=== PATIENT | male | born 1960 | race Caucasian/White ===

== ENCOUNTER 2018-07-29 18:23 | Emergency (ER) | payer MEDICARE, BC ==
--- NOTE | 2018-07-29 18:42 | EDM.PDOC ---
ED HPI GENERAL MEDICAL PROBLEM - General Chief Complaint: Neuro Symptoms/Deficits Stated Complaint: HIGH BLOOD PRESSURE, SLURRED SPEECH Time Seen by Provider: 07/29/18 18:39 Source of Information: Reports: Patient History Limitations: Reports: No Limitations - History of Present Illness INITIAL COMMENTS - FREE TEXT/NARRATIVE: pt arrived with a history of 2 episodes that lasted a few minutes when he could not speak. He then seemed back to normal and it happened again. He does not have a headache but his bp is very high. Onset: Today, Sudden Duration: Hour(s): Location: Reports: Head Associated Symptoms: Reports: Other ( difficulty speaking. ) neck Pain Score (Numeric/FACES): 5 - Related Data Allergies Allergy/AdvReac Type Severity Reaction Status Date / Time No Known Allergies Allergy Verified 07/29/18 18:28 Home Meds: Home Meds Lisinopril 5 mg PO DAILY 07/29/18 [History] Naproxen 500 mg PO TID 07/29/18 [History] Simvastatin [Zocor] 40 mg PO BEDTIME 07/29/18 [History] metFORMIN [Glucophage] 1,500 mg PO BIDMEALS 07/29/18 [History] tiZANidine [Zanaflex] 4 mg PO BID 07/29/18 [History] traMADol HCl [Tramadol HCl] 50 mg PO ASDIRECTED 07/29/18 [History] Past Medical History HEENT History: Reports: Impaired Vision Cardiovascular History: Reports: Hypertension Musculoskeletal History: Reports: Arthritis, Fracture Psychiatric History: Reports: Anxiety, Depression Endocrine/Metabolic History: Reports: Other (See Below) Other Endocrine/Metabolic History: borderline diabetic takes metformin Dermatologic History: Reports: Eczema - Past Surgical History Musculoskeletal Surgical History: Reports: Other (See Below) ED ROS GENERAL - Review of Systems Review Of Systems: See Below Constitutional: Reports: No Symptoms HEENT: Reports: No Symptoms Respiratory: Reports: No Symptoms Cardiovascular: Reports: No Symptoms Endocrine: Reports: No Symptoms GI/Abdominal: Reports: No Symptoms : Reports: No Symptoms Musculoskeletal: Reports: No Symptoms Skin: Reports: No Symptoms Neurological: Reports: Trouble Speaking, Other ( 2 episodes of difficulty speaking. ) Psychiatric: Reports: Anxiety ED EXAM, NEURO - Physical Exam Exam: See Below Text/Narrative:: Pt arrived with difficulty with speech. He had 2 episodes prior to arrival and he has had 2 episodes after arrival. He does not have any other symptoms. He does not have a headache. His bp is very high. Exam Limited By: No Limitations General Appearance: Alert, No Apparent Distress, Anxious, Other (pt is worried about the speech issue. pupils are equal anfd reactive. ) Ears: Normal TMs Nose: Normal Inspection Throat/Mouth: Normal Inspection Head Exam: Atraumatic Neck: Normal Inspection Respiratory/Chest: No Respiratory Distress Cardiovascular: Regular Rate, Rhythm, No Murmur GI/Abdominal: Soft, Non-Tender (Male) Exam: Deferred Rectal (Males) Exam: Deferred Neurological: Alert, Oriented x 3, Other (pt is only having episodes when he can not speak. He has no facial deviation) Back Exam: Normal Inspection Extremities: Other (normal range of motion and normal strength. ) Psychiatric: Normal Affect, Anxious Course - Vital Signs Last Recorded V/S: Last Vital Signs Temp 35.5 C 07/29/18 19:06 Pulse 77 07/29/18 19:12 Resp 16 07/29/18 19:06 BP 150/84 H 07/29/18 19:12 Pulse Ox 97 07/29/18 19:12 - Orders/Labs/Meds Orders: Active Orders 24 hr Category Date Time Status EKG Documentation Completion [RC] ASDIRECTED Care 07/29/18 18:28 Active Head wo Cont [CT] Stat Exams 07/29/18 18:27 Taken Sodium Chloride 0.9% [Normal Saline] 1,000 ml Med 07/29/18 19:30 Ordered IV ASDIRECTED EKG 12 Lead [EK] Routine Ther 07/29/18 18:28 Ordered Medication Orders Sodium Chloride (Normal Saline) 1,000 mls @ 150 mls/hr IV ASDIRECTED RAINER Labs: Laboratory Tests 07/29/18 07/29/18 07/29/18 Range/Units 18:46 18:56 18:56 WBC 7.8 (4.5-11.0) K/uL RBC 4.61 (4.30-5.90) M/uL Hgb 15.0 (12.0-15.0) g/dL Hct 41.7 (40.0-54.0) % MCV 91 (80-98) fL MCH 33 H (27-31) pg MCHC 36 (32-36) % Plt Count 213 (150-400) K/uL Neut % (Auto) 67 H (36-66) % Lymph % (Auto) 15 L (24-44) % Churchill % (Auto) 16 H (2-6) % Eos % (Auto) 1 L (2-4) % Baso % (Auto) 1 (0-1) % PT 10.2 (9.5-12.0) sec INR 0.92 (0.80-1.20) APTT 27.5 (27.0-36.0) sec Sodium 134 L (140-148) mmol/L Potassium 4.3 (3.6-5.2) mmol/L Chloride 97 L (100-108) mmol/L Carbon Dioxide 25 (21-32) mmol/L Anion Gap 16.3 H (5.0-14.0) mmol/L BUN 9 (7-18) mg/dL Creatinine 0.8 (0.8-1.3) mg/dL Est Cr Clr Drug Dosing 106.46 mL/min Estimated GFR (MDRD) > 60 (>60) Glucose 92 (74-106) mg/dL Calcium 9.6 (8.5-10.1) mg/dL Total Bilirubin 0.5 (0.2-1.0) mg/dL AST 34 (15-37) U/L ALT 35 (12-78) U/L Alkaline Phosphatase 50 (46-116) U/L Total Protein 6.9 (6.4-8.2) g/dL Albumin 4.2 (3.4-5.0) g/dL Globulin 2.7 (2.3-3.5) g/dL Albumin/Globulin Ratio 1.6 (1.2-2.2) Meds: Medications Generic Name Dose Route Start Last Admin Trade Name Freq PRN Reason Stop Dose Admin Sodium Chloride 1,000 mls @ 150 mls/hr 07/29/18 19:30 Normal Saline IV ASDIRECTED RAINER Discontinued Medications Generic Name Dose Route Start Last Admin Trade Name Freq PRN Reason Stop Dose Admin Aspirin 325 mg 07/29/18 19:25 Ecotrin PO 07/29/18 19:26 ONETIME ONE Labetalol HCl 20 mg 07/29/18 18:49 Normodyne IVPUSH 07/29/18 18:50 ONETIME ONE Protocol Labetalol HCl 20 mg 07/29/18 19:04 09/18/18 19:04 Normodyne IVPUSH 07/29/18 19:05 20 mg NOW ONE Administration Protocol Labetalol HCl Confirm 07/29/18 19:01 Normodyne Administered 07/29/18 19:02 Dose 20 mg .ROUTE .STK-MED ONE - Re-Assessments/Exams Free Text/Narrative Re-Assessment/Exam: 07/29/18 19:02 pt had very high bp is was given labetalol 20mg iv. He had a cat scan of the head which was normal. His glucose is 90. He does not have any pain. He is under alot of stress. His has dementia and it appears to be getting worse. He is the point of care technician. 07/29/18 19:26 Dr Arrington was consulted and he felt that he should have the full stroke workup. Departure - Departure Time of Disposition: 19:27 Disposition: DC/Tfer to Acute Hospital 02 Condition: Fair Clinical Impression: TIA (transient ischemic attack), Hypertension - Discharge Information Referrals: PCP,None [Primary Care Provider] - Forms: ED Department Discharge Care Plan Goals: To [facility] for a stroke workup - My Orders Last 24 Hours: My Active Orders 07/29/18 18:27 Head wo Cont [CT] Stat 07/29/18 18:28 EKG Documentation Completion [RC] ASDIRECTED EKG 12 Lead [EK] Routine 07/29/18 19:30 Sodium Chloride 0.9% [Normal Saline] 1,000 ml IV ASDIRECTED - Assessment/Plan Last 24 Hours: My Active Orders 07/29/18 18:27 Head wo Cont [CT] Stat 07/29/18 18:28 EKG Documentation Completion [RC] ASDIRECTED EKG 12 Lead [EK] Routine 07/29/18 19:30 Sodium Chloride 0.9% [Normal Saline] 1,000 ml IV ASDIRECTED
[2018-07-29] MEDS ORDERED: Labetalol 100 MG/20 ML MDV IVPUSH ONE (18:49)
[2018-07-29] MEDS ORDERED: Labetalol 20 MG/4 ML Syringe ONE (19:01)
[2018-07-29] MEDS ORDERED: Labetalol 20 MG/4 ML Syringe IVPUSH ONE (19:04)
[2018-07-29 19:13] VITALS: BP 150/84
[2018-07-29] MEDS ORDERED: Aspirin 325 MG Tab.EC PO ONE (19:25)
[2018-07-29] MEDS ORDERED: Sodium Chloride 0.9% 1,000 ML IV SCH (19:30)
== END 2018-07-29 19:47 ==
LOC: JP.ED 18:23
DX: G45.9 Transient cerebral ischemic attack, unspecified (principal); I10 Essential (primary) hypertension; F41.9 Anxiety disorder, unspecified; F32.9 Major depressive disorder, single episode, unspecified; F17.210 Nicotine dependence, cigarettes, uncomplicated; Z79.899 Other long term (current) drug therapy; Z79.84 Long term (current) use of oral hypoglycemic drugs
CPT/HCPCS: 36415; 70450; 80053; 82962; 85025; 85610; 85730; 93005; 93010; 96374; 99284; A9270; J3490; J7030

== ENCOUNTER 2019-04-09 20:37 | Emergency (ER) | payer MEDICARE, BC ==
[2019-04-09 21:15] VITALS: BP 158/88
--- NOTE | 2019-04-09 22:08 | CRLCR ---
INDICATION: Forearm injury from fall on dorsum side of hand TECHNIQUE: Forearm radiograph 2 views right COMPARISON: None FINDINGS: Bone: There is a comminuted, segmental nondisplaced fracture present in the ulnar diaphysis. Joint: The visualized radiocarpal and elbow joints are unremarkable, but the elbow joint is not profiled. If there is pain or tenderness in this region, dedicated views of the elbow are recommended. Soft tissue: Unremarkable. No radiopaque foreign bodies are seen. IMPRESSION: 1. There is a comminuted, segmental nondisplaced fracture present in the ulnar diaphysis. Dictated by Brad Hernandez MD @ 04/09/2019 10:07:02 PM Dictated by: Brad Hernandez MD @ 04/09/2019 22:07:09 (Electronically Signed)
--- NOTE | 2019-04-09 22:28 | EDM.PDOC ---
ED HPI GENERAL MEDICAL PROBLEM - General Chief Complaint: Upper Extremity Injury/Pain Stated Complaint: RIGHT WRIST INJURY/DEER TICK Time Seen by Provider: 04/09/19 21:30 Source of Information: Reports: Patient History Limitations: Reports: No Limitations - History of Present Illness INITIAL COMMENTS - FREE TEXT/NARRATIVE: This patient was at home and he tripped and fell on his right hand the hand the wrist was fully flex so he sort of fell on the back of his hand and sort of hyper flexed the wrist. He complains of pain to about the distal third of the ulna. He also was bitten by a tick to the low back about a week ago and he's worried about Lyme disease. He's not having any rash or fever or body aches. Right Hand Pain Score (Numeric/FACES): 10 - Related Data Allergies Allergy/AdvReac Type Severity Reaction Status Date / Time No Known Allergies Allergy Verified 07/29/18 18:28 Home Meds: Home Meds Lisinopril 5 mg PO DAILY 07/29/18 [History] Naproxen 500 mg PO TID 07/29/18 [History] Simvastatin [Zocor] 40 mg PO BEDTIME 07/29/18 [History] metFORMIN [Glucophage] 1,500 mg PO BIDMEALS 07/29/18 [History] tiZANidine [Zanaflex] 4 mg PO BID 07/29/18 [History] traMADol HCl [Tramadol HCl] 50 mg PO ASDIRECTED 07/29/18 [History] Past Medical History HEENT History: Reports: Impaired Vision Cardiovascular History: Reports: Hypertension Musculoskeletal History: Reports: Arthritis, Fracture Psychiatric History: Reports: Anxiety, Depression Endocrine/Metabolic History: Reports: Other (See Below) Other Endocrine/Metabolic History: borderline diabetic takes metformin Dermatologic History: Reports: Eczema - Infectious Disease History Infectious Disease History: Reports: Chicken Pox - Past Surgical History Musculoskeletal Surgical History: Reports: Other (See Below) Social & Family History - Tobacco Use Smoking Status *Q: Current Every Day Smoker Years of Tobacco use: 20 Packs/Tins Daily: 0.5 - Caffeine Use Caffeine Use: Reports: Soda Review of Systems - Review of Systems Review Of Systems: ROS reveals no pertinent complaints other than HPI. ED EXAM, GENERAL - Physical Exam Exam: See Below Exam Limited By: No Limitations General Appearance: Alert, WD/WN, No Apparent Distress Back Exam: Other (There does appear to be evidence of a tick bite to the low back there is a central bite vuong Like a little grayish appearing crater surrounded by about a centimeter of very mild erythema. Definitely does not appear to have any erythema migrans type of rash) Extremities: Other (. there is mild swelling and tenderness to the distal ) Course - Vital Signs Last Recorded V/S: Last Vital Signs Temp 37.3 C 04/09/19 20:59 Pulse 110 H 04/09/19 20:59 Resp 18 04/09/19 20:59 BP 158/88 H 04/09/19 20:59 Pulse Ox 94 L 04/09/19 20:59 - Radiology Interpretation Free Text/Narrative:: Comminuted minimally displaced fracture of the distal third of the right ulna. - Re-Assessments/Exams Free Text/Narrative Re-Assessment/Exam: 04/09/19 22:25 Sugar tong splint was placed to the right forearm. And he was placed in a sling. Departure - Departure Time of Disposition: 22:25 Disposition: Home, Self-Care 01 Condition: Fair Clinical Impression: Fracture of ulna, Tick bite of back - Discharge Information Instructions: Ulnar Fracture Referrals: PCP,None [Primary Care Provider] - Forms: ED Department Discharge Additional Instructions: Wear the splint for safety. Apply ice for the next 12 hours or so. Keep elevated as much as she can. Follow-up with orthopedics next week. For the tick bite take doxycycline 100 mg twice daily for 1 week. There is enough medication there for 10 days if you want to take it for that long. 10 days would be the minimum treatment for acute Lyme disease however you don't appear to have symptoms of acute Lyme disease so you are just receiving the medication as prophylaxis.
== END 2019-04-09 22:35 | disposition home or self-care (01) ==
LOC: JP.ED 20:37
DX: S52.601A Unspecified fracture of lower end of right ulna, initial encounter for closed fracture (principal); S30.860A Insect bite (nonvenomous) of lower back and pelvis, initial encounter; F41.9 Anxiety disorder, unspecified; F32.9 Major depressive disorder, single episode, unspecified; F17.210 Nicotine dependence, cigarettes, uncomplicated; Z79.899 Other long term (current) drug therapy; W57.XXXA Bitten or stung by nonvenomous insect and other nonvenomous arthropods, initial encounter; W19.XXXA Unspecified fall, initial encounter
CPT/HCPCS: 29125; 73090-RT; 99283; 99283-25

== ENCOUNTER 2019-04-12 20:16 | Emergency (ER) | payer MEDICARE, BC ==
--- NOTE | 2019-04-12 21:17 | EDM.PDOCBH ---
ED HPI GENERAL MEDICAL PROBLEM - General Chief Complaint: Behavioral/Psych Stated Complaint: EVAL VIA [facility] Time Seen by Provider: 04/12/19 21:00 Source of Information: Reports: Patient, Old Records History Limitations: Reports: No Limitations - History of Present Illness INITIAL COMMENTS - FREE TEXT/NARRATIVE: 58 yo male presents via EMS with intoxication stating he needs help for depression and drinking. Is willing to go to detox. His last Aug. and he lives alone. Is [facility]. Onset: Gradual Duration: Chronic, Waxing/Waning Location: Reports: Generalized Quality: Reports: Other (no new physical pain) Severity: Moderate Improves with: Reports: None Worsens with: Reports: Other (time) Context: Reports: Other (see HPI) Associated Symptoms: Reports: Other (depression/intoxication) Treatments [employer]ODUCTION [employer]IST: Reports: Other (see below) (none) - Related Data Allergies Allergy/AdvReac Type Severity Reaction Status Date / Time No Known Allergies Allergy Verified 04/12/19 21:54 Home Meds: Home Meds Lisinopril 5 mg PO DAILY 07/29/18 [History] Naproxen 500 mg PO TID 07/29/18 [History] Simvastatin [Zocor] 40 mg PO BEDTIME 07/29/18 [History] metFORMIN [Glucophage] 1,500 mg PO BIDMEALS 07/29/18 [History] tiZANidine [Zanaflex] 4 mg PO BID 07/29/18 [History] traMADol HCl [Tramadol HCl] 50 mg PO ASDIRECTED 07/29/18 [History] LORazepam 1 mg PO Q6H PRN 04/12/19 [History] Past Medical History HEENT History: Reports: Impaired Vision Cardiovascular History: Reports: Heart Murmur, Hypertension Musculoskeletal History: Reports: Arthritis, Fracture Neurological History: Reports: Headaches, Chronic Psychiatric History: Reports: Anxiety, Depression Endocrine/Metabolic History: Reports: Diabetes, Type II Other Endocrine/Metabolic History: borderline diabetic takes metformin Dermatologic History: Reports: Eczema - Infectious Disease History Infectious Disease History: Reports: Chicken Pox - Past Surgical History Musculoskeletal Surgical History: Reports: Other (See Below) Social & Family History - Tobacco Use Smoking Status *Q: Current Every Day Smoker Years of Tobacco use: 28 Packs/Tins Daily: 1 Used Tobacco, but Quit: No Second Hand Smoke Exposure: No - Caffeine Use Caffeine Use: Reports: Soda - Alcohol Use Days Per Week of Alcohol Use: 7 Number of Drinks Per Day: 6 Total Drinks Per Week: 42 Date of Last Drink: 04/12/19 Time of Last Drink: 19:00 - Recreational Drug Use Recreational Drug Use: No ED ROS GENERAL - Review of Systems Review Of Systems: See Below Constitutional: Reports: No Symptoms HEENT: Reports: No Symptoms Respiratory: Reports: No Symptoms Cardiovascular: Reports: No Symptoms Endocrine: Reports: No Symptoms GI/Abdominal: Reports: No Symptoms : Reports: No Symptoms Musculoskeletal: Reports: Other (R forearm in a cast from a recent fall/fx) Skin: Reports: No Symptoms Neurological: Reports: No Symptoms Psychiatric: Reports: Depression ED EXAM, BEHAVIORAL HEALTH - Physical Exam Exam: See Below Exam Limited By: No Limitations General Appearance: Alert, WD/WN, No Apparent Distress Eye Exam: Bilateral Eye: Normal Inspection Ears: Normal External Exam, Normal Canal, Hearing Grossly Normal Nose: Normal Inspection, No Blood Throat/Mouth: Normal Inspection, Normal Lips, Normal Teeth, Normal Oropharynx, Normal Voice, No Airway Compromise Head: Atraumatic, Normocephalic Neck: Normal Inspection Respiratory/Chest: No Respiratory Distress, Lungs Clear, Normal Breath Sounds, No Accessory Muscle Use Cardiovascular: Regular Rate, Rhythm, No Edema, Tachycardia GI/Abdominal: Normal Bowel Sounds, Soft, Non-Tender, No Distention Back Exam: Normal Inspection. No: CVA Tenderness (R), CVA Tenderness (L) Extremities: Normal Inspection, Normal Range of Motion, Non-Tender, Pedal Edema (trace to both LE's below the knees.) Neurological: Alert, CN II-XII Intact, Normal Cognition, No Motor/Sensory Deficits, Oriented x 3 Psychiatric: Alert, Normal Cognition, Depressed Mood Skin Exam: Warm, Dry, Intact, Normal color, No rash COURSE, BEHAVIORAL HEALTH COMP - Course Vital Signs: Last Vital Signs Temp 36.7 C 04/12/19 20:45 Pulse 100 04/12/19 22:19 Resp 16 04/12/19 22:19 BP 160/86 H 04/12/19 22:19 Pulse Ox 99 04/12/19 22:19 Orders, Labs, Meds: Laboratory Tests 04/12/19 04/12/19 04/12/19 Range/Units 21:14 21:14 21:23 WBC 7.8 (4.5-11.0) K/uL RBC 4.98 (4.30-5.90) M/uL Hgb 15.1 H (12.0-15.0) g/dL Hct 43.1 (40.0-54.0) % MCV 87 (80-98) fL MCH 30 (27-31) pg MCHC 35 (32-36) % Plt Count 276 (150-400) K/uL Sodium (140-148) mmol/L Potassium (3.6-5.2) mmol/L Chloride (100-108) mmol/L Carbon Dioxide (21-32) mmol/L Anion Gap (5.0-14.0) mmol/L BUN (7-18) mg/dL Creatinine (0.8-1.3) mg/dL Est Cr Clr Drug Dosing mL/min Estimated GFR (MDRD) (>60) Glucose (74-106) mg/dL Calcium (8.5-10.1) mg/dL Total Bilirubin (0.2-1.0) mg/dL AST (15-37) U/L ALT (12-78) U/L Alkaline Phosphatase (46-116) U/L Total Protein (6.4-8.2) g/dL Albumin (3.4-5.0) g/dL Globulin (2.3-3.5) g/dL Albumin/Globulin Ratio (1.2-2.2) Urine Color Yellow Urine Appearance Clear Urine pH 6.0 (4.5-8.0) Ur Specific [place] 1.005 L (1.008-1.030) Urine Protein Negative (NEGATIVE) mg/dL Urine Glucose (UA) Normal (NEGATIVE) mg/dL Urine Ketones 15 H (NEGATIVE) mg/dL Urine Occult Blood Negative (NEGATIVE) Urine Nitrite Negative (NEGAITVE) Urine Bilirubin Negative (NEGATIVE) Urine Urobilinogen Normal (NORMAL) mg/dL Ur Leukocyte Esterase Negative (NEGATIVE) Urine RBC Not seen (0-5) Urine WBC Not seen (0-5) Ur Epithelial Cells Not seen Amorphous Sediment Not seen Urine Bacteria Not seen Urine Mucus Few Urine Opiates Screen Negative (NEGATIVE) Ur Oxycodone Screen Negative (NEGATIVE) Urine Methadone Screen Negative (NEGATIVE) Ur Propoxyphene Screen Negative (NEGATIVE) Ur Barbiturates Screen Negative (NEGATIVE) Ur Tricyclics Screen Negative (NEGATIVE) Ur Phencyclidine Scrn Negative (NEGATIVE) Ur Amphetamine Screen Negative (NEGATIVE) U Methamphetamines Scrn Negative (NEGATIVE) Urine MDMA Screen Negative (NEGATIVE) U Benzodiazepines Scrn Negative (NEGATIVE) U Cocaine Metab Screen Negative (NEGATIVE) U Marijuana (THC) Screen Negative (NEGATIVE) Ethyl Alcohol mg/dL 04/12/19 04/12/19 Range/Units 21:23 21:23 WBC (4.5-11.0) K/uL RBC (4.30-5.90) M/uL Hgb (12.0-15.0) g/dL Hct (40.0-54.0) % MCV (80-98) fL MCH (27-31) pg MCHC (32-36) % Plt Count (150-400) K/uL Sodium 129 L (140-148) mmol/L Potassium 4.2 (3.6-5.2) mmol/L Chloride 90 L (100-108) mmol/L Carbon Dioxide 28 (21-32) mmol/L Anion Gap 15.2 H (5.0-14.0) mmol/L BUN 4 L D (7-18) mg/dL Creatinine 0.7 L (0.8-1.3) mg/dL Est Cr Clr Drug Dosing 120.22 mL/min Estimated GFR (MDRD) > 60 (>60) Glucose 103 (74-106) mg/dL Calcium 9.1 (8.5-10.1) mg/dL Total Bilirubin 0.4 (0.2-1.0) mg/dL AST 42 H (15-37) U/L ALT 32 (12-78) U/L Alkaline Phosphatase 61 (46-116) U/L Total Protein 7.3 (6.4-8.2) g/dL Albumin 3.7 (3.4-5.0) g/dL Globulin 3.6 H (2.3-3.5) g/dL Albumin/Globulin Ratio 1.0 L (1.2-2.2) Urine Color Urine Appearance Urine pH (4.5-8.0) Ur Specific [place] (1.008-1.030) Urine Protein (NEGATIVE) mg/dL Urine Glucose (UA) (NEGATIVE) mg/dL Urine Ketones (NEGATIVE) mg/dL Urine Occult Blood (NEGATIVE) Urine Nitrite (NEGAITVE) Urine Bilirubin (NEGATIVE) Urine Urobilinogen (NORMAL) mg/dL Ur Leukocyte Esterase (NEGATIVE) Urine RBC (0-5) Urine WBC (0-5) Ur Epithelial Cells Amorphous Sediment Urine Bacteria Urine Mucus Urine Opiates Screen (NEGATIVE) Ur Oxycodone Screen (NEGATIVE) Urine Methadone Screen (NEGATIVE) Ur Propoxyphene Screen (NEGATIVE) Ur Barbiturates Screen (NEGATIVE) Ur Tricyclics Screen (NEGATIVE) Ur Phencyclidine Scrn (NEGATIVE) Ur Amphetamine Screen (NEGATIVE) U Methamphetamines Scrn (NEGATIVE) Urine MDMA Screen (NEGATIVE) U Benzodiazepines Scrn (NEGATIVE) U Cocaine Metab Screen (NEGATIVE) U Marijuana (THC) Screen (NEGATIVE) Ethyl Alcohol 297 mg/dL Re-Assessment/Re-Exam Date: 04/12/19 Departure - Departure Time of Disposition: 23:25 Disposition: DC/Tfer to Other 70 Condition: Fair Clinical Impression: Alcohol abuse, Hyponatremia Depression Qualifiers: Depression Type: major depressive disorder Major depression recurrence: recurrent Active/Remission status: currently active Major depression episode severity: severe Psychotic features: without psychotic features Qualified Code(s ): F33.2 - Major depressive disorder, recurrent severe without psychotic features - Discharge Information *PRESCRIPTION DRUG MONITORING PROGRAM REVIEWED*: No *COPY OF PRESCRIPTION DRUG MONITORING REPORT IN PATIENT NITIN: No Referrals: PCP,None [Primary Care Provider] - Forms: ED Department Discharge
[2019-04-12 22:20] VITALS: BP 160/86
== END 2019-04-12 23:13 | disposition other institution (70) ==
LOC: JP.ED 20:16
DX: F33.2 Major depressive disorder, recurrent severe without psychotic features (principal); E87.1 Hypo-osmolality and hyponatremia; F10.129 Alcohol abuse with intoxication, unspecified; I10 Essential (primary) hypertension; E11.9 Type 2 diabetes mellitus without complications; F17.210 Nicotine dependence, cigarettes, uncomplicated; Y90.8 Blood alcohol level of 240 mg/100 ml or more
CPT/HCPCS: 36415; 80053; 80305; 81001; 85027; 99284; G0480